=== PATIENT | male | born 1970 | race Caucasian/White ===

== ENCOUNTER 2016-04-28 08:02 | Emergency (ER) | payer BC ==
[~2016-04-28] VITALS: Ht 177.8 cm; Wt 115.9 kg
[2016-04-28 08:04] VITALS: BP 181/99; PULSE 83; RESP 18; TEMP 97.8; O2SAT 97
[2016-04-28] MEDS ORDERED: METO50TA11 PO (08:16)
[2016-04-28] MEDS ORDERED: ROBA500T PO (08:28)
[2016-04-28] MEDS ORDERED: IBUP800T23 PO (08:28)
--- NOTE | 2016-04-28 08:29 | PD ---
HPI Chief Complaint: Back/ Neck Pain or Injury Time Seen by Provider: 08:23 Travel History International Travel<30 days: No Contact w/Intl Traveler<30days: No Traveled to known affect area: No History of Present Illness HPI 45-year-old male presents to the emergency room with complaint of right sided lower back pain with right-sided sciatica that has been on and off for the last 3 weeks. He really exacerbated his sciatica yesterday. Denies injury or strain. Reports pain radiates down the back of his right leg. Denies paresthesias, loss of sensation, decreased range of motion, decreased strength to the affected extremity. Reports occasional cramping in his right foot with certain positions. Is ambulatory with a normal gait. Pain is aggravated with certain movements. Pain is decreased with certain positions. He has tried taking ibuprofen and an unknown pain medication with no relief of symptoms. Denies IV drug use. Denies cancer. Denies fever, chills. Denies abdominal pain, nausea, vomiting. Primary care provider is in [place]. No known allergies. History of hypertension. Takes metoprolol. Took his medication this morning and is compliant with medication. No other modifying factors or associated signs and symptoms. PFSH Past Medical History Cardiovascular Problems: Yes (HYPERTENSION) Social History Tobacco Use: No Allergies-Medications (Allergen,Severity, Reaction): Coded Allergies: No Known Allergies (Unverified , 04/28/16) Reported Meds & Prescriptions Reported Meds & Active Scripts Active Robaxin (Methocarbamol) 500 Mg Tab 500 Mg PO QID PRN Reported Metoprolol Succinate ER 24 HR (Metoprolol Succinate) 50 Mg Tab 50 Mg PO BID Review of Systems Except as stated in HPI: all other systems reviewed are Neg Physical Exam Narrative GENERAL: Well-nourished, well-developed male patient, in no acute distress SKIN: Warm and dry. HEAD: Atraumatic. Normocephalic. EYES: Pupils equal and round. No scleral icterus. No injection or drainage. ENT: Mucosa pink and moist. Airway patent. NECK: Trachea midline. CARDIOVASCULAR: Regular rate. RESPIRATORY: No accessory muscle use. GASTROINTESTINAL: Round. MUSCULOSKELETAL: Bilateral lower extremities supple and non-tense with 2+ pedal pulses and sensory intact; with full range of motion and 5/5 strength. 2 + DTRs. Active dorsiflexion and extension of bilateral feet. Bilateral straight leg raise is negative for low back pain. Ambulatory with normal gait. Sitting up in bed at 90. No obvious deformities. No clubbing. No cyanosis. No edema. BACK: No midline point tenderness on palpation of the lumbar spine. Tenderness on palpation of right iliosacral area. No obvious deformities. NEUROLOGICAL: Awake and alert. Oriented 3. No obvious cranial nerve deficits. Motor grossly within normal limits. Normal speech. Moves all extremities. 5/5 strength to all extremities. Sensory intact. PSYCHIATRIC: Appropriate mood and affect; insight and judgment normal. Data Data Last Documented VS Vital Signs Date Time Temp Pulse Resp B/P Pulse Ox O2 Delivery O2 Flow Rate FiO2 04/28/16 08:04 97.8 83 18 181/99 97 Orders Ketorolac Inj (Toradol Inj) (04/28/16 08:30) Orphenadrine Inj (Norflex Inj) (04/28/16 08:30) [facility] Medical Decision Making Medical Screen Exam Complete: Yes Emergency Medical Condition: Yes Medical Record Reviewed: Yes Differential Diagnosis Acute exacerbation of chronic low back pain, sciatica, low back strain Narrative Course 45-year-old male physical examination history of present illness consistent with right-sided low back pain with sciatica. Patient is afebrile and nontoxic- appearing. He denies fever, chills, nausea, vomiting. Denies IV drug use. Denies cancer. Patient is ambulatory in the room with a normal gait. No midline point tenderness on palpation of the lumbar spine. Reproducible tenderness to the right iliosacral area. Patient has history of hypertension and took his prescribed metoprolol this morning. Toradol and Norflex ordered. Robaxin and ibuprofen prescribed for home. Patient is medically cleared and stable for discharge. Discussed reasons to return to the emergency department. Instructed patient to follow up with primary care provider. Patient agrees with treatment plan. The patients vital signs are stable and the patient is stable for outpatient follow-up and treatment. Patient discharged home, stable and in no acute distress. Diagnosis Primary Impression: Right-sided low back pain with sciatica Qualified Code: M54.41 - Right-sided low back pain with right-sided sciatica, unspecified chronicity Referrals: Primary Care Physician Patient Instructions: Acute Low Back Pain (ED), General Instructions, Lower Back Exercises (ED), Sciatica (ED) Departure Forms: Tests/Procedures, Work Release Enter return to work date: May 01, 2016 Additional Instructions: Tylenol or ibuprofen as directed and as needed for pain Robaxin as prescribed and as needed for muscle spasms Heating pad and/or ice to affected area to reduce pain Avoid aggravating activities; increase activity as tolerated Follow-up with primary care provider Return to the emergency department immediately with worsening symptoms Med/Other Pt SpecificInfo: Prescription(s) given Scripts Ibuprofen 800 Mg [id number] Mg PO Q6HR PRN (PAIN) #30 TAB Ref 0 Prov:Aniyah Blair 04/28/16 Methocarbamol (Robaxin)500 Mg [id number] Mg PO QID PRN (MUSCLE SPASM) #30 TAB Ref 0 Prov:Aniyah Blair 04/28/16 Disposition: 01 DISCHARGE HOME Condition: Stable Aniyah Blair Apr 28, 2016 08:28
[2016-04-28] MEDS ORDERED: ORPHENADRINE INJ 60 MG/2 ML AMP IM ONE (08:30)
[2016-04-28] MEDS ORDERED: KETOROLAC TROMETHAMINE 60 MG/2 ML (IM) VIAL IM ONE (08:30)
== END 2016-04-28 09:21 | disposition home or self-care (01) ==
LOC: NEPB 08:02
DX: M54.5 Low back pain (principal); M54.31 Sciatica, right side; I10 Essential (primary) hypertension
CPT/HCPCS: 96372; 99283; J1885; J2360